=== PATIENT | female | born 1930 | race Caucasian/White ===

== ENCOUNTER 2016-08-05 09:47 | Outpatient (CLI) | payer MEDICARE | END 2016-08-05 09:48 | disposition home or self-care (01) | LOC: NAVSJIPCSP 09:47 | PROVIDERS: ATTEND Internal Medicine | DX: E78.5 Hyperlipidemia, unspecified (principal); Z79.899 Other long term (current) drug therapy | CPT/HCPCS: 36415; 80061 ==

== ENCOUNTER 2016-11-12 10:10 | Outpatient (CLI) | payer MEDICARE | END 2016-11-12 10:11 | disposition home or self-care (01) | LOC: NAVSJIPCSP 10:10 | PROVIDERS: ATTEND Internal Medicine | DX: E78.5 Hyperlipidemia, unspecified (principal); Z79.899 Other long term (current) drug therapy | CPT/HCPCS: 36415; 80061 ==

== ENCOUNTER 2017-02-09 08:26 | Outpatient (CLI) | payer MEDICARE ==
[2017-02-09 12:31] LABS: #Basophils 0.1 thou/uL (0.0-0.2); #Eosinphils 0.2 thou/uL (0.0-0.7); #Lymphocytes 2.6 thou/uL (1.20-3.40); #Monocytes 0.4 thou/uL (0.11-0.59); #Neutrophils 3.3 thou/uL (1.40-6.50); %Basophils 1.5 % (0.0-1.0); %Eosinophils 3.3 % (0.0-10.0); %Lymphocytes 38.9 % (21.0-51.0); %Monocytes 5.8 % (0.0-10.0); %Neutrophils 50.5 % (42.0-75.0); Hemoglobin 12.7 g/dL (12.0-16.0); Mean Corpuscular HGB CONC 33.3 g/dL (32.0-36.0); Mean Corpuscular Hemoglobin 30.8 pg (27.0-31.0); Mean Corpuscular Volume 92.6 fl (81.0-99.0); Platelet Count 222 thou/uL (130-400); RBC Distribution Width 11.8 % (11.5-14.5); Red Blood Cell (RBC) Count 4.12 mill/uL (4.20-5.40); White Blood Cell (WBC) Count 6.6 thou/uL (4.8-10.8)
[2017-02-09 12:51] LABS: ALT (SGPT) 18 U/L (8-55); AST (SGOT) 17 U/L (5-34); Albumin 4.4 g/dL (3.4-4.8); Alkaline Phosphatase 85 U/L (40-150); Anion Gap 18 mmol/L (10-20); BUN (Urea Nitrogen) 15 mg/dL (9.8-20.1); Bilirubin, Total 0.6 mg/dL (0.2-1.2); Calc. Creatinine Clearance 0 mL/min (70-130); Calcium 9.7 mg/dL (7.8-10.44); Carbon Dioxide 20 mmol/L (23-31); Cardiac Risk 2.9 (Less than 4.5); Chloride 105 mmol/L (98-107); Cholesterol 177 mg/dl (< 200 Desired); Estimated GFR-MDRD 63; Globulin 1.7 g/dL (2.4-3.5); Glucose 97 mg/dL (83-110); HDL Cholesterol 61 mg/dL (>60 Neg Risk); LDL Cholesterol, Calculated 95 mg/dL; Potassium 4.9 mmol/L (3.5-5.1); Protein, Total 6.1 g/dL (6.0-8.3); Sodium 138 mmol/L (136-145); Triglycerides 105 mg/dL (Less than 150)
[2017-02-10 13:41] LABS: Bilirubin Negative (Negative); Blood, Urine Moderate (Negative); Clarity Cloudy (Clear); Glucose, Urine (Dipstick) Negative (Negative); Leukocyte Large (Negative); Nitrite Negative (Negative); Protein, Urine (Dipstick) 30 mg/dL (Neg-Trace); Specific Gravity, Urine 1.025 (1.005-1.030); Urobilinogen 0.2 mg/dL (0.2-1.0)
[2017-02-10 13:58] LABS: Squamous Epithelial 0-3 HPF (0-3); WBC/HPF 21-50 HPF (0-3)
[2017-02-10 13:59] LABS: Bacteria/HPF 2+ HPF (None Seen); Other Microscopic Description NO
== END 2017-02-09 08:27 | disposition home or self-care (01) ==
LOC: NAVSJIPCSP 08:26
PROVIDERS: ATTEND Internal Medicine
DX: I11.9 Hypertensive heart disease without heart failure (principal); E78.5 Hyperlipidemia, unspecified
CPT/HCPCS: 36415; 80053; 80061; 81003; 81015; 85025

== ENCOUNTER 2017-10-13 11:13 | Emergency (ER) | payer MEDICARE ==
[2017-10-13] MEDS ORDERED: Triple Antibiotic Oint 1 GM Packet ONE (11:21)
[2017-10-13 12:43] LABS: Bilirubin Small (Negative); Blood, Urine Large (Negative); Clarity Cloudy (Clear); Glucose, Urine (Dipstick) Negative (Negative); Leukocyte Small (Negative); Nitrite Positive (Negative); Protein, Urine (Dipstick) > or equal to 300 mg/dL (Neg-Trace); Specific Gravity, Urine 1.025 (1.005-1.030); pH, Urine 5.5 (5.0-9.0)
[2017-10-13 12:49] LABS: Bacteria/HPF 3+ HPF (None Seen); RBC/HPF GREATER THAN 50-TNTC HPF (0-3); Squamous Epithelial 0-3 HPF (0-3)
--- NOTE | 2017-10-13 13:14 | CT ---
CT LUMBAR SPINE NONCONTRAST: INDICATIONS: Low back pain related to recent fall, injury. FINDINGS: There is osseous demineralization. No compression fracture or significant subluxation. Prominent de xtroscoliosis of the lumbar spine is present, centered at the L2-L3 level. There is multilevel degen erative facet hypertrophy. Incidental note of atherosclerotic vascular disease. IMPRESSION: No acute osseous abnormality of the lumbar spine. POS: [facility]
--- NOTE | 2017-10-13 13:35 | RAD ---
PA CHEST AND LEFT RIB SERIES: HISTORY: Injury. Left-sided chest pain. FINDINGS: The heart size is normal. The aorta is tortuous. The lungs are well expanded without focal areas of consolidation, pneumothorax, or pleural effusions. There are fractures involving the left 8th and 9th ribs. POS: [facility]
[2017-10-13 13:36] LABS: #Lymphocytes 1.3 thou/uL (1.20-3.40); #Monocytes 0.5 thou/uL (0.11-0.59); #Neutrophils 4.3 thou/uL (1.40-6.50); %Basophils 0.7 % (0.0-1.0); %Eosinophils 0.3 % (0.0-10.0); %Lymphocytes 20.9 % (21.0-51.0); %Monocytes 8.2 % (0.0-10.0); %Neutrophils 69.8 % (42.0-75.0); Hemoglobin 10.3 g/dL (12.0-16.0); Mean Corpuscular HGB CONC 31.7 g/dL (32.0-36.0); Mean Corpuscular Hemoglobin 31.2 pg (27.0-31.0); Mean Corpuscular Volume 98.4 fl (81.0-99.0); Mean Platelet Volume 6.8 fL (7.4-10.4); Platelet Count 169 thou/uL (130-400); RBC Distribution Width 13.1 % (11.5-14.5); Red Blood Cell (RBC) Count 3.31 mill/uL (4.20-5.40); White Blood Cell (WBC) Count 6.2 thou/uL (4.8-10.8)
[2017-10-13 13:43] LABS: Anion Gap 19 mmol/L (10-20); BUN (Urea Nitrogen) 95 mg/dL (9.8-20.1); Calc. Creatinine Clearance 0 mL/min (70-130); Calcium 9.2 mg/dL (7.8-10.44); Carbon Dioxide 12 mmol/L (23-31); Chloride 107 mmol/L (98-107); Estimated GFR-MDRD 9; Glucose 91 mg/dL (83-110); Potassium 5.5 mmol/L (3.5-5.1); Sodium 132 mmol/L (136-145)
[2017-10-13] MEDS ORDERED: Sulfameth/Trimethoprim DS 800-160mg TAB ONE (14:38)
[2017-10-13] MEDS ORDERED: Sodium Chloride 0.9% 1,000 ML ONE (17:39)
== END 2017-10-13 15:14 | disposition short-term general hospital (02) ==
LOC: NAV ERS 11:13
DX: S22.42XA Multiple fractures of ribs, left side, initial encounter for closed fracture (principal); S41.111A Laceration without foreign body of right upper arm, initial encounter; N39.0 Urinary tract infection, site not specified; N19 Unspecified kidney failure; S70.02XD Contusion of left hip, subsequent encounter; M19.90 Unspecified osteoarthritis, unspecified site; G47.00 Insomnia, unspecified; I10 Essential (primary) hypertension; F32.9 Major depressive disorder, single episode, unspecified; Z79.899 Other long term (current) drug therapy; W01.190A Fall on same level from slipping, tripping and stumbling with subsequent striking against furniture, initial encounter
CPT/HCPCS: 36415; 72131; 80048; 81003; 81015; 85025; 87077; 87086; 87186; 96360; J7050

== ENCOUNTER 2017-10-28 13:54 | Inpatient (IN) | payer MEDICARE ==
[2017-10-28 14:05] VITALS: BMI 23.4
[2017-10-28] MEDS ORDERED: Sodium Bicarbonate Tab 325 MG TAB PO SCH (15:00)
[2017-10-28] MEDS ORDERED: Acetaminophen 500 MG TAB PO PRN (16:09)
[2017-10-28] MEDS ORDERED: Zinc Oxide 16% Ointment 60 gm Tube TOP PRN ×2 (16:09→16:56)
[2017-10-28] MEDS ORDERED: Ferrous Sulfate 325 MG TAB PO SCH (17:00)
[2017-10-28] MEDS ORDERED: Polyethylene Glycol OPTH DROP 15 ML BOT EA EYE SCH (17:00)
[2017-10-28] MEDS: Ferrous Sulfate 325 MG TAB PO SCH (18:25)
[2017-10-28] MEDS: Polyethylene Glycol OPTH DROP 15 ML BOT EA EYE SCH ×2 (18:25→20:54)
[2017-10-28] MEDS ORDERED: Cipro 250 MG TAB PO SCH (20:00)
[2017-10-28] MEDS: Cipro 250 MG TAB PO SCH (20:53)
[2017-10-28] MEDS: Artificial Tear Sol 15 ML BOT R EYE SCH (20:53)
[2017-10-28] MEDS: Rosuvastatin 10 MG TAB PO SCH (20:54)
[2017-10-28] MEDS: FRESHKOTE EYE R EYE SCH (20:54)
[2017-10-28] MEDS: Sodium Bicarbonate Tab 325 MG TAB PO SCH (20:55)
[2017-10-28] MEDS ORDERED: Rosuvastatin 10 MG TAB PO SCH (21:00)
[2017-10-29 05:32] LABS: #Basophils 0.1 thou/uL (0.0-0.2); #Eosinphils 0.1 thou/uL (0.0-0.7); #Lymphocytes 1.4 thou/uL (1.20-3.40); #Monocytes 0.3 thou/uL (0.11-0.59); #Neutrophils 2.8 thou/uL (1.40-6.50); %Eosinophils 1.7 % (0.0-10.0); %Lymphocytes 29.6 % (21.0-51.0); %Monocytes 7.2 % (0.0-10.0); %Neutrophils 59.6 % (42.0-75.0); Hemoglobin 6.7 g/dL (12.0-16.0); Mean Corpuscular HGB CONC 32.6 g/dL (32.0-36.0); Mean Corpuscular Hemoglobin 30.2 pg (27.0-31.0); Mean Corpuscular Volume 92.5 fl (81.0-99.0); Mean Platelet Volume 6.1 fL (7.4-10.4); Platelet Count 220 thou/uL (130-400); RBC Distribution Width 15.8 % (11.5-14.5); Red Blood Cell (RBC) Count 2.22 mill/uL (4.20-5.40); White Blood Cell (WBC) Count 4.7 thou/uL (4.8-10.8)
[2017-10-29 05:42] LABS: Anion Gap 12 mmol/L (10-20); BUN (Urea Nitrogen) 32 mg/dL (9.8-20.1); Calc. Creatinine Clearance 21 mL/min (70-130); Calcium 7.8 mg/dL (7.8-10.44); Carbon Dioxide 19 mmol/L (23-31); Chloride 112 mmol/L (98-107); Estimated GFR-MDRD 23; Glucose 97 mg/dL (83-110); Potassium 3.8 mmol/L (3.5-5.1); Sodium 139 mmol/L (136-145)
[2017-10-29] MEDS ORDERED: Sodium Chloride 0.9% 10 ML ONE (06:23)
[2017-10-29] MEDS: Cipro 250 MG TAB PO SCH ×2 (06:28→20:20)
[2017-10-29] MEDS ORDERED: Sodium Chloride 0.9% 20 ML ONE (06:37)
[2017-10-29] MEDS: Ferrous Sulfate 325 MG TAB PO SCH ×2 (08:17→17:23)
[2017-10-29] MEDS: Artificial Tear Sol 15 ML BOT R EYE SCH ×3 (08:17→20:21)
[2017-10-29] MEDS: Amlodipine 5 MG TAB PO SCH (08:17)
[2017-10-29] MEDS: Sodium Bicarbonate Tab 325 MG TAB PO SCH ×3 (08:18→20:20)
[2017-10-29] MEDS: Famotidine 20 MG TAB PO SCH (08:18)
[2017-10-29] MEDS: FRESHKOTE EYE R EYE SCH ×2 (08:18→15:23)
[2017-10-29] MEDS: Polyethylene Glycol OPTH DROP 15 ML BOT EA EYE SCH ×4 (08:18→20:21)
[2017-10-29] MEDS: Saccharomyces boulardii 250 MG CAP PO SCH (08:18)
[2017-10-29] MEDS ORDERED: Saccharomyces boulardii 250 MG CAP PO SCH (09:00)
--- NOTE | 2017-10-29 13:50 | HP ---
CHIEF COMPLAINT: 1. Resolving hemorrhagic cystitis. 2. Resolving acute on chronic kidney disease. 3. Left 8th and 9th rib fracture, healing. 4. Significant deconditioning. 5. Urinary retention requiring periodic self-catheterization. BRIEF HISTORY: This is a very pleasant 87-year-old female who is a patient of mine, who wa s recently admitted to [facility] with weakness, fatigue, and altered mental status. She was diagnosed with acute renal failure, hemorrhagic cystitis left 8th and 9th rib fractures. She und erwent cystoscopy and biopsy which was negative for any malignancy. She was treated with IV antibiot ics, IV fluids, and then was switched over to p.o. ciprofloxacin. Urology recommended in and out cat heterization due to urinary retention. Apparently, her daughter was having significant issues and petty duggan also took Ambien for sleep and she got more lethargic and confused at home, so she was brought back to the hospital. She was admitted overnight for observation and then transferred here mainly fo r therapy. The patient denies any concerns or questions. She is able to recognize me. She is back to her baseline. Her daughter is in the room and she denies any questions or concerns. She understa nds that she needs therapy. She was noted to have a hemoglobin of 6.7 this morning and she is gettin g her 1 unit of packed cells and she is tolerating it well. Discussed with nursing and she apparentl y had a saturated brief and when nursing did in and out catheterization, they were able to get only 1 50 mL. Unfortunately, the bladder scan is under repair and we are trying to get a loaner, so we can monitor it and avoid in and out catheterization unless it is absolutely necessary. Patient denies an y fever, chills, chest pain or shortness of breath. PAST MEDICAL HISTORY: 1. Hypertension. 2. Dyslipidemia. 3. Insomnia. 4. Anemia of chronic disease. 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 6. Resolving hemorrhagic cystitis. PAST SURGICAL HISTORY: 1. Left eye retinal surgery. 2. Recent cystoscopy and ureteroscopy. CURRENT MEDICATIONS: 1. Norvasc 10 mg p.o. daily. 2. Ciprofloxacin 250 mg p.o. b.i.d. for 5 more days. 3. Pepcid 20 mg daily. 4. Iron sulfate 325 mg p.o. b.i.d. 5. Crestor 20 mg p.o. daily. 6. Florastor 250 mg daily. 7. Sodium bicarbonate 650 mg p.o. t.i.d. for metabolic acidosis. ALLERGIES: BACITRACIN, NEOMYCIN and PENICILLIN. FAMILY HISTORY: Mother at age 86 from complications from pneumonia. PSYCHOSOCIAL HISTORY: The patient lives here in [place]. Lives with her daughter. Very active and independent. No documented tobacco, alcohol or IV drug abuse. REVIEW OF SYSTEMS: CARDIOVASCULAR SYSTEM: The patient denies any chest pain, shortness of breath, p alpitations, paroxysmal nocturnal dyspnea, orthopnea, pedal edema. RESPIRATORY SYSTEM: Denies any c hronic cough, expectoration or pleuritic type chest pain. GASTROINTESTINAL SYSTEM: Denies any nause a, vomiting, diarrhea, constipation, hematemesis, melena, hematochezia. GENITOURINARY SYSTEM: See h istory of presenting illness. She is still having episodes of hematuria and some urinary retention. CENTRAL NERVOUS SYSTEM: Generalized weakness. MUSCULOSKELETAL SYSTEM: She does have arthritis. S KIN: She denies any rash. HEENT: Denies any recent changes with vision, speech, hearing or swallow ing. PHYSICAL EXAMINATION: GENERAL: Very pleasant 87-year-old female in no apparent distress. She responds appropria tely to questions. She is alert, awake, and oriented x3. VITAL SIGNS: She is afebrile, heart rate is 82, respirations are 18, blood pressure is 155/67, oxyge n saturation is 95% on room air. HEENT: Normocephalic, atraumatic. Pupils are equal and reactive to light and accommodation. NECK: No JVD, thyromegaly, cervical adenopathy, or throat exudates. No carotid bruits. CARDIOVASCUL AR SYSTEM: S1, S2 plus. Rate and rhythm regular. RESPIRATORY SYSTEM: Normal vesicular breath sounds heard in all lung fowler. ABDOMEN: Soft, nontender, bowel sounds heard in all quadrants. EXTREMITIES: Without cyanosis or clubbing. Peripheral pulses are palpable. CENTRAL NERVOUS SYSTEM: Generalized weakness. LABORATORY DATA: Laboratory values done this morning shows white count of 4.7, hemoglobin and hemato crit is 6.7 and 20.5, it was 7.5 and 21.1 yesterday. Chemistry shows sodium 139, potassium 3.8, BUN and creatinine is 32 and 2.07, it was 34 and 1.99 yesterday. IMPRESSION: 1. Worsening anemia, possibly due to blood loss from her hematuria and her hemorrhagic cystitis. 2. Chronic kidney disease stage 4. 3. Hypertension, reasonable control. 4. Dyslipidemia. 5. Degenerative joint disease. 6. Insomnia. 7. Healing left 8th and 9th rib fractures. 8. Metabolic acidosis, on sodium bicarbonate tablets. PLAN: 1. Continue ciprofloxacin for 5 more days. 2. Type and cross and transfuse 1 unit which is already being done. 3. Continue current medications. 4. Stress ulcer prophylaxis. 5. PlexiPulses for DVT prophylaxis. 6. Physical therapy and occupational therapy evaluation and treat. 7. Monitor laboratory values closely. 8. Nutritional support. 9. Try to get a loaner bladder scan and monitor her urine output. 10. Discussed with patient and daughter in detail. All questions answered. 11. Estimated length of stay 7 days.
[2017-10-29] MEDS: Rosuvastatin 10 MG TAB PO SCH (20:20)
[2017-10-30] MEDS: Cipro 250 MG TAB PO SCH ×2 (06:29→20:31)
[2017-10-30] MEDS: Amlodipine 5 MG TAB PO SCH (08:37)
[2017-10-30] MEDS: Saccharomyces boulardii 250 MG CAP PO SCH (08:37)
[2017-10-30] MEDS: Sodium Bicarbonate Tab 325 MG TAB PO SCH ×3 (08:37→20:32)
[2017-10-30] MEDS: Famotidine 20 MG TAB PO SCH (08:38)
[2017-10-30] MEDS: Artificial Tear Sol 15 ML BOT R EYE SCH ×3 (08:38→20:31)
[2017-10-30] MEDS: Ferrous Sulfate 325 MG TAB PO SCH ×2 (08:38→17:40)
[2017-10-30] MEDS: Polyethylene Glycol OPTH DROP 15 ML BOT EA EYE SCH ×4 (08:39→20:31)
--- NOTE | 2017-10-30 09:11 | PRG ---
DATE OF SERVICE: 10/30/2017 SUBJECTIVE: Ms. Raymond is doing well. Denies any complaints, resting comfortably, alert and oriente d. Her daughter is in the room. She is having urinary incontinence, but she is not having any reten tion. Bladder scans have been consistently below 250 mL and been done every 6 hours. Her hematuria seems to have resolved. She did receive 1 unit of blood transfusion without any problems yesterday. No concerns or questions. OBJECTIVE: VITAL SIGNS: She is afebrile, heart rate 79, respirations 18, oxygen saturation 94% on room air, blo od pressure 161/72. CARDIOVASCULAR: S1, S2 plus. RESPIRATORY: Normal vesicular breath sounds. ABDOMEN: Soft, nontender, bowel sounds heard in all quadrants. EXTREMITIES: Without cyanosis, clubbing. Degenerative joint disease. CENTRAL NERVOUS SYSTEM: Grossly nonfocal except for generalized weakness. IMPRESSION: 1. Anemia requiring blood transfusion. Repeat laboratory values are pending. 2. Hemorrhagic cystitis, resolving. 3. Hypertension, fluctuating control. 4. Dyslipidemia. 5. Degenerative joint disease. 6. Insomnia. 7. Acute renal failure. Her last renal function in February was completely within normal limits. We will continue to monitor. PLAN: 1. Continue current medications. 2. Monitor blood pressure and adjust medications. 3. Heart healthy diet. 4. Continue to do bladder scan and in and out catheterization if residual is more than 300 mL. 5. DVT prophylaxis with PlexiPulses. 6. Decubitus precautions. 7. Continue PT and OT. 8. Routine laboratory values. 9. Discussed with patient and daughter in detail and all questions answered.
[2017-10-30] MEDS: Rosuvastatin 10 MG TAB PO SCH (20:32)
[2017-10-31] MEDS: Cipro 250 MG TAB PO SCH ×2 (05:35→21:00)
[2017-10-31 06:17] LABS: #Basophils 0.1 thou/uL (0.0-0.2); #Eosinphils 0.1 thou/uL (0.0-0.7); #Lymphocytes 1.6 thou/uL (1.20-3.40); #Monocytes 0.4 thou/uL (0.11-0.59); #Neutrophils 2.2 thou/uL (1.40-6.50); %Basophils 2.1 % (0.0-1.0); %Lymphocytes 37.3 % (21.0-51.0); %Monocytes 8.2 % (0.0-10.0); %Neutrophils 50.4 % (42.0-75.0); Hemoglobin 7.8 g/dL (12.0-16.0); Mean Corpuscular Hemoglobin 30.6 pg (27.0-31.0); Mean Corpuscular Volume 92.8 fl (81.0-99.0); Mean Platelet Volume 6.4 fL (7.4-10.4); Platelet Count 211 thou/uL (130-400); RBC Distribution Width 15.1 % (11.5-14.5); Red Blood Cell (RBC) Count 2.54 mill/uL (4.20-5.40); White Blood Cell (WBC) Count 4.3 thou/uL (4.8-10.8)
[2017-10-31 06:27] LABS: Anion Gap 12 mmol/L (10-20); BUN (Urea Nitrogen) 28 mg/dL (9.8-20.1); Calc. Creatinine Clearance 20 mL/min (70-130); Calcium 7.9 mg/dL (7.8-10.44); Carbon Dioxide 20 mmol/L (23-31); Chloride 112 mmol/L (98-107); Estimated GFR-MDRD 21; Glucose 95 mg/dL (83-110); Potassium 3.5 mmol/L (3.5-5.1); Sodium 140 mmol/L (136-145)
[2017-10-31] MEDS: Famotidine 20 MG TAB PO SCH (09:01)
[2017-10-31] MEDS: Sodium Bicarbonate Tab 325 MG TAB PO SCH ×3 (09:01→21:07)
[2017-10-31] MEDS: Saccharomyces boulardii 250 MG CAP PO SCH (09:01)
[2017-10-31] MEDS: Amlodipine 5 MG TAB PO SCH (09:01)
[2017-10-31] MEDS: Polyethylene Glycol OPTH DROP 15 ML BOT EA EYE SCH ×4 (09:01→21:09)
[2017-10-31] MEDS: Ferrous Sulfate 325 MG TAB PO SCH ×2 (09:01→17:00)
[2017-10-31] MEDS: Artificial Tear Sol 15 ML BOT R EYE SCH ×3 (09:02→21:08)
[2017-10-31] MEDS: Rosuvastatin 10 MG TAB PO SCH (21:07)
--- NOTE | 2017-10-31 22:40 | PRG ---
DATE OF SERVICE: 10/31/[address] David Sauceda. SUBJECTIVE: The patient feels well. States she is ready to go home. She has been eating and drinki ng well with no dizziness or lightheadedness, dysuria, or hematuria. She has had a recent admission to the hospital with acute renal failure secondary to hemorrhagic cystitis, but has no further sympto ms. OBJECTIVE: VITAL SIGNS: Her blood pressure still 161/68, temperature is 98.4, pulse 82, respirations 20, O2 sat s 94% on room air. LUNGS: Clear. CARDIAC: Shows regular rhythm. ABDOMEN: Soft and nontender. SKIN AND EXTREMITIES: Showed no edema, clubbing, or cyanosis. IMAGING: Bladder scan; however, continued to show greater than 400 mL of urine retention. LABORATORY DATA: Show hemoglobin up to 7.8 after transfusion of 1 unit, hematocrit 23, white count 4 300. Urinalysis showed sodium 140, potassium 3.5, chloride 112, bicarbonate 20, BUN 28, creatinine 2 .17. ASSESSMENT: 1. Stable chronic kidney disease, stage 4, status post acute kidney injury from hemorrhagic cystitis . 2. Resolving hemorrhagic cystitis. 3. Persistent urinary retention, requiring intermittent catheterization. 4. Hypertension, controlled to goal. PLAN: Continue to monitor for urinary retention. Discuss discharge planning with daughter as ga sharpe is adamant, she is wishing to go home. Daughter needs to be able to do in and out catheterization if possible. Continue Cipro 250 twice daily until tomorrow.
[2017-11-01 05:36] LABS: Anion Gap 12 mmol/L (10-20); BUN (Urea Nitrogen) 28 mg/dL (9.8-20.1); Calc. Creatinine Clearance 18 mL/min (70-130); Calcium 8.1 mg/dL (7.8-10.44); Carbon Dioxide 20 mmol/L (23-31); Chloride 113 mmol/L (98-107); Estimated GFR-MDRD 19; Glucose 99 mg/dL (83-110); Potassium 3.6 mmol/L (3.5-5.1); Sodium 141 mmol/L (136-145)
[2017-11-01 05:40] LABS: #Basophils 0.1 thou/uL (0.0-0.2); #Eosinphils 0.1 thou/uL (0.0-0.7); #Lymphocytes 1.7 thou/uL (1.20-3.40); #Monocytes 0.5 thou/uL (0.11-0.59); %Basophils 1.9 % (0.0-1.0); %Lymphocytes 38.4 % (21.0-51.0); %Monocytes 10.6 % (0.0-10.0); %Neutrophils 47.1 % (42.0-75.0); Hemoglobin 8.3 g/dL (12.0-16.0); Mean Corpuscular HGB CONC 32.4 g/dL (32.0-36.0); Mean Corpuscular Hemoglobin 30.1 pg (27.0-31.0); Mean Platelet Volume 6.2 fL (7.4-10.4); Platelet Count 205 thou/uL (130-400); RBC Distribution Width 14.8 % (11.5-14.5); Red Blood Cell (RBC) Count 2.77 mill/uL (4.20-5.40); White Blood Cell (WBC) Count 4.3 thou/uL (4.8-10.8)
[2017-11-01] MEDS: Cipro 250 MG TAB PO SCH ×2 (05:58→20:07)
[2017-11-01] MEDS: Saccharomyces boulardii 250 MG CAP PO SCH (08:34)
[2017-11-01] MEDS: Sodium Bicarbonate Tab 325 MG TAB PO SCH ×3 (08:34→20:08)
[2017-11-01] MEDS: Amlodipine 5 MG TAB PO SCH (08:37)
[2017-11-01] MEDS: Famotidine 20 MG TAB PO SCH (08:38)
[2017-11-01] MEDS: Ferrous Sulfate 325 MG TAB PO SCH ×2 (08:38→17:38)
[2017-11-01] MEDS: Artificial Tear Sol 15 ML BOT R EYE SCH ×3 (08:39→20:07)
[2017-11-01] MEDS: Polyethylene Glycol OPTH DROP 15 ML BOT EA EYE SCH ×4 (08:40→20:07)
[2017-11-01] MEDS: Rosuvastatin 10 MG TAB PO SCH (20:07)
[2017-11-02 05:45] LABS: Anion Gap 13 mmol/L (10-20); BUN (Urea Nitrogen) 27 mg/dL (9.8-20.1); Calc. Creatinine Clearance 17 mL/min (70-130); Calcium 8.3 mg/dL (7.8-10.44); Carbon Dioxide 21 mmol/L (23-31); Chloride 113 mmol/L (98-107); Estimated GFR-MDRD 18; Glucose 103 mg/dL (83-110); Potassium 3.6 mmol/L (3.5-5.1); Sodium 143 mmol/L (136-145)
--- NOTE | 2017-11-02 08:17 | PRG ---
DATE OF SERVICE: 11/01/[address] David Sauceda. SUBJECTIVE: The patient feels much better with increasing strength, still not eating and drinking mu ch, but is going to the bathroom. He is having decreasing residuals. OBJECTIVE: VITAL SIGNS: Temperature is 98, pulse 82, respirations 18, O2 sats 95% on room air, blood pressure 1 61/69. Residuals now less than 150-200. LUNGS: Clear. CARDIAC: Shows regular rhythm. ABDOMEN: Soft and nontender. Intake and output not completely measured as the patient is still lewis g in a diaper some. LABORATORY DATA: Show white count of 4300, hematocrit 25, hemoglobin 8.3, gradually improving. Sodi um 141, potassium 3.6, chloride 113, bicarbonate 20, BUN 28, creatinine 2.4 up from 2.07 with a GFR d own to 19. ASSESSMENT: 1. Resolving hemorrhagic cystitis 2. Stable anemia secondary to hemorrhagic cystitis. 3. Persistent urinary retention, improving, ambulation with decreasing residuals. 4. Hypertension, controlled to goal. 5. Chronic kidney disease stage 4, slightly worsening with a creatinine of 2.4 from 2.17 and we will repeat in the a.m. We will stress oral intake.
[2017-11-02] MEDS: Ferrous Sulfate 325 MG TAB PO SCH ×2 (08:55→17:40)
[2017-11-02] MEDS: Amlodipine 5 MG TAB PO SCH (08:55)
[2017-11-02] MEDS: Famotidine 20 MG TAB PO SCH (08:56)
[2017-11-02] MEDS: Artificial Tear Sol 15 ML BOT R EYE SCH ×3 (08:56→21:00)
[2017-11-02] MEDS: Polyethylene Glycol OPTH DROP 15 ML BOT EA EYE SCH ×4 (08:57→21:00)
[2017-11-02] MEDS: Sodium Bicarbonate Tab 325 MG TAB PO SCH ×3 (08:57→21:00)
[2017-11-02] MEDS: Saccharomyces boulardii 250 MG CAP PO SCH (08:57)
--- NOTE | 2017-11-02 13:24 | PRG ---
DATE OF SERVICE: 11/02/2017 Ms. Raymond apparently is not eating or drinking well. She has a flat affect. She says she wants to go home, but when I explained to her that she really needs to eat well and do more with therapy and w e need to sort out her urinary retention, she got upset and stated that she is going to spend the res t of her life here. Her daughter and other family members are in the room. I explained to her that I understand her frustration, but really need to get her better. She is going to get a renal ultraso und and then I have asked them to place an indwelling Kenny catheter. Family states that they really cannot do in and out catheterization at home. OBJECTIVE: VITAL SIGNS: She is afebrile, heart rate is 85, respirations 20, oxygen saturation 96% on room air, blood pressure 166/70. CARDIOVASCULAR: S1, S2 plus. RESPIRATORY SYSTEM: Normal vesicular breath sounds. ABDOMEN: Soft, nontender, bowel sounds heard in all quadrants. EXTREMITIES: Without cyanosis or clubbing. CENTRAL NERVOUS SYSTEM: Generalized weakness. LABORATORY VALUES: Sodium 143, potassium 3.6, BUN and creatinine 27 and 2.56. It was 28 and 2.4 yes terday. White count 4.3, H&H 8.3 and 25.7. IMPRESSION: 1. Worsening renal insufficiency. 2. Persistent urinary retention. 3. Hypertension. 4. Dyslipidemia. 5. Degenerative joint disease. 6. Insomnia. 7. Resolving hemorrhagic cystitis. PLAN: 1. Check renal and bladder ultrasound to make sure there is no hydronephrosis. 2. Place indwelling Kenny catheter. 3. Trial of Celexa. 4. Encourage p.o. intake. 5. Physical therapy. 6. Routine laboratory values. 7. Discussed with patient and family in detail. All questions answered.
--- NOTE | 2017-11-02 14:45 | ULT ---
RENAL SONOGRAM: HISTORY: Renal failure. Retention. FINDINGS: The right kidney is 10.0 cm. The left kidney is 9.6 cm. No solid or cystic masses. No hydronephros is. Urinary bladder is decompressed by a Kenny catheter. IMPRESSION: No evidence of upper urinary tract obstruction. POS: [facility]
[2017-11-02] MEDS: Citalopram 10 MG TAB PO SCH (21:00)
[2017-11-02] MEDS: Rosuvastatin 10 MG TAB PO SCH (21:00)
[2017-11-03 05:41] LABS: Anion Gap 11 mmol/L (10-20); BUN (Urea Nitrogen) 25 mg/dL (9.8-20.1); Calc. Creatinine Clearance 18 mL/min (70-130); Calcium 8.3 mg/dL (7.8-10.44); Carbon Dioxide 22 mmol/L (23-31); Chloride 112 mmol/L (98-107); Estimated GFR-MDRD 20; Glucose 102 mg/dL (83-110); Potassium 3.8 mmol/L (3.5-5.1); Sodium 141 mmol/L (136-145)
[2017-11-03] MEDS: Polyethylene Glycol OPTH DROP 15 ML BOT EA EYE SCH ×4 (08:36→20:31)
[2017-11-03] MEDS: Famotidine 20 MG TAB PO SCH (08:36)
[2017-11-03] MEDS: Ferrous Sulfate 325 MG TAB PO SCH ×2 (08:36→17:31)
[2017-11-03] MEDS: Amlodipine 5 MG TAB PO SCH (08:36)
[2017-11-03] MEDS: Artificial Tear Sol 15 ML BOT R EYE SCH ×3 (08:36→20:31)
[2017-11-03] MEDS: Saccharomyces boulardii 250 MG CAP PO SCH (08:37)
[2017-11-03] MEDS: Sodium Bicarbonate Tab 325 MG TAB PO SCH ×3 (08:37→20:31)
--- NOTE | 2017-11-03 13:34 | PRG ---
DATE OF SERVICE: 11/03/2017 SUBJECTIVE: Ms. Raymond is doing well with therapy. She is eating better, but still not enough. I h ad a long discussion with the patient. She does not have her dentures here, but even at home she lindy arently does not use it. She apparently just eats a soft diet. So, I am going to change her to a me chanically soft diet here and also encouraged her to drink her supplements. Plan is to discharge her home on , as Therapy states that she is pretty much safe to go home after a couple more days of therapy. Discussed with her daughter as well. OBJECTIVE: VITAL SIGNS: She is afebrile, heart rate 84, respirations 18, oxygen saturation 93% on room air, blo od pressure 120/58. CARDIOVASCULAR SYSTEM: S1 and S2 plus. RESPIRATORY SYSTEM: Normal vesicular breath sounds. ABDOMEN: Soft, nontender, bowel sounds heard in all quadrants. EXTREMITIES: Without cyanosis or clubbing. CENTRAL NERVOUS SYSTEM: Improving deconditioning. LABORATORY VALUES: Sodium 141, potassium 3.8, BUN and creatinine are 25 and 2.35, improving. IMPRESSION: 1. Urinary retention, requiring Kenny catheter placement. 2. Improving renal insufficiency. 3. Hypertension, much improved control. 4. Dyslipidemia. 5. Insomnia. 6. Improving deconditioning. 7. Degenerative joint disease. PLAN: 1. Continue current medications. 2. Nutritional support. 3. DVT and stress ulcer prophylaxis. 4. Decubitus precautions. 5. Mechanically soft diet. 6. Recheck BMP in the morning. 7. Continue physical therapy. 8. Patient wants [facility] that will be arranged. 9. Anticipate discharge on .
[2017-11-03] MEDS: Citalopram 10 MG TAB PO SCH (20:31)
[2017-11-03] MEDS: Rosuvastatin 10 MG TAB PO SCH (20:31)
[2017-11-04 05:39] LABS: Anion Gap 11 mmol/L (10-20); BUN (Urea Nitrogen) 26 mg/dL (9.8-20.1); Calc. Creatinine Clearance 20 mL/min (70-130); Calcium 8.1 mg/dL (7.8-10.44); Carbon Dioxide 22 mmol/L (23-31); Chloride 112 mmol/L (98-107); Estimated GFR-MDRD 22; Glucose 98 mg/dL (83-110); Potassium 3.3 mmol/L (3.5-5.1); Sodium 142 mmol/L (136-145)
[2017-11-04] MEDS: Saccharomyces boulardii 250 MG CAP PO SCH (08:00)
[2017-11-04] MEDS: Ferrous Sulfate 325 MG TAB PO SCH ×2 (08:00→17:12)
[2017-11-04] MEDS: Amlodipine 5 MG TAB PO SCH (08:00)
[2017-11-04] MEDS: Sodium Bicarbonate Tab 325 MG TAB PO SCH ×3 (08:00→20:04)
[2017-11-04] MEDS: Famotidine 20 MG TAB PO SCH (08:01)
[2017-11-04] MEDS: Artificial Tear Sol 15 ML BOT R EYE SCH ×3 (08:02→20:04)
[2017-11-04] MEDS: Polyethylene Glycol OPTH DROP 15 ML BOT EA EYE SCH ×4 (08:02→20:04)
--- NOTE | 2017-11-04 13:29 | PRG ---
DATE OF SERVICE: 11/04/2017 SUBJECTIVE: Ms. Raymond is doing well. Denies any complaints. She apparently ate much better today, tolerating her Kenny catheter even though she does not like it, and knows that she needs it. Her re nal functions are continuing to improve, doing well with therapy. Anticipated discharge date is sharee rr. Home health has already been arranged by nursing. OBJECTIVE: VITAL SIGNS: She is afebrile, heart rate 70, respirations 18, oxygen saturation 93% on room air, blo od pressure 150/67. CARDIOVASCULAR: S1, S2 plus. RESPIRATORY: Normal breath sounds. ABDOMEN: Soft, nontender, bowel sounds heard in all quadrants. EXTREMITIES: Without cyanosis or clubbing. CENTRAL NERVOUS SYSTEM: Improving deconditioning. LABORATORY VALUES: Sodium 142, potassium slightly low at 3.3, BUN and creatinine is 26 and 2.16. IMPRESSION: 1. Improving renal insufficiency. 2. Hypokalemia. 3. Hypertension. 4. Dyslipidemia. 5. Urinary retention. PLAN: 1. Replace potassium. 2. Continue current medications. 3. Physical therapy. 4. Kenny catheter care. 5. DVT and stress ulcer prophylaxis. 6. Decubitus precautions. 7. Anticipate discharge to home tomorrow. 8. Outpatient follow with Urology. Daughter is to reschedule appointment.
[2017-11-04] MEDS ORDERED: Potassium Chloride 20 MEQ TAB PO SCH (13:30)
[2017-11-04] MEDS: Citalopram 10 MG TAB PO SCH (20:04)
[2017-11-04] MEDS: Rosuvastatin 10 MG TAB PO SCH (20:04)
[2017-11-05 05:32] LABS: Anion Gap 10 mmol/L (10-20); BUN (Urea Nitrogen) 26 mg/dL (9.8-20.1); Calc. Creatinine Clearance 21 mL/min (70-130); Calcium 8.1 mg/dL (7.8-10.44); Carbon Dioxide 22 mmol/L (23-31); Chloride 111 mmol/L (98-107); Estimated GFR-MDRD 24; Glucose 96 mg/dL (83-110); Potassium 3.4 mmol/L (3.5-5.1); Sodium 140 mmol/L (136-145)
[2017-11-05] MEDS: Amlodipine 5 MG TAB PO SCH (08:11)
[2017-11-05] MEDS: Ferrous Sulfate 325 MG TAB PO SCH ×2 (08:11→17:06)
[2017-11-05] MEDS: Artificial Tear Sol 15 ML BOT R EYE SCH ×2 (08:14→15:44)
[2017-11-05] MEDS: Famotidine 20 MG TAB PO SCH (08:15)
[2017-11-05] MEDS: Polyethylene Glycol OPTH DROP 15 ML BOT EA EYE SCH ×3 (08:15→17:06)
[2017-11-05] MEDS: Sodium Bicarbonate Tab 325 MG TAB PO SCH ×2 (08:16→15:42)
[2017-11-05] MEDS ORDERED: Potassium Chloride 20 MEQ TAB PO SCH (13:00)
--- NOTE | 2017-11-05 13:21 | DIS ---
DATE OF ADMISSION: 10/28/2017 DATE OF DISCHARGE: 11/05/2017 PRINCIPAL DIAGNOSES: 1. Hemorrhagic cystitis, resolved. 2. Resolving acute renal failure. 3. Left 8th and 9th rib fracture healing. 4. Improved deconditioning. 5. Urinary retention, requiring chronic indwelling Kenny. 6. Hypertension. 7. Dyslipidemia. 8. Insomnia. 9. Anemia of chronic disease. COMPLICATIONS: None. ADVERSE REACTIONS: None. PROCEDURES: Renal and bladder ultrasound. CONSULTATIONS: Physical therapy and occupational therapy. HOSPITAL COURSE: The patient was admitted as a transfer from [facility] where she was a dmitted with weakness, fatigue, and altered mental status. She was diagnosed with acute renal failur e, hemorrhagic cystitis, and left 8th and 9th rib fractures. Cystoscopy and biopsy were negative for any malignancy. She was treated with IV antibiotics and then switched to oral ciprofloxacin. She w as seen by Urology and was recommended in and out catheterization. Patient went home, and apparently , the daughter had trouble doing the in and out catheterization and patient took some Ambien and that made her really confused, so she came back to the hospital and was kept under observation. Her albino l functions continued to show creatinine in the mid 2s range. It was felt that she may have chronic kidney disease. I reviewed my old records and her last creatinine, done in February of last year, was normal. When she came here, she had again signs of urinary retention requiring periodic in and out catheterization, and so I did a renal and bladder ultrasound. It did not show any hydronephrosis. D id show some bladder wall thickening and I decided to place an indwelling Kenny catheter, which given her social circumstances would be her best option at present. She does have an outpatient followup appointment with Urology, Dr. Zepeda. Since placing the Kenny catheter, her renal functions are much improved. It was as high as 2.56 and it is down today to 1.99. She has been placed in a leg bag the rapy, has deemed her safe to go home, and they have discharged her from their services. Home health has been arranged. Family chose [facility]. She is being discharged today. She is to f ollow a heart healthy diet. Continue using Kenny catheter with a thigh bag for daytime and just a re gular bag at night. Activity as tolerated. Encouraged p.o. intake. She is to continue on her sodiu m bicarbonate tablets and her citalopram, which are the only two new ones. Her other medications rosie l remain the same, which are Norvasc 10 mg daily, Pepcid 20 mg daily, iron sulfate 325 mg b.i.d., Cre stor 20 mg daily. PHYSICAL EXAMINATION: On the day of discharge, VITAL SIGNS: She is afebrile, heart rate is 80, respirations are 20, oxygen saturation 96% on room a ir, blood pressure this morning was slightly elevated 172/72. I asked them to recheck it again and n ow it is 142/80. CARDIOVASCULAR SYSTEM: S1 and S2 plus. RESPIRATORY SYSTEM: Normal vesicular breath sounds. ABDOMEN: Soft, nontender, bowel sounds heard in all quadrants. EXTREMITIES: Without cyanosis or clubbing. Degenerative joint disease. CENTRAL NERVOUS SYSTEM: Improving deconditioning. As stated, her last CBC was done on 11/01 where the white count was 4.3, H and H was 8.3 and 25.7. B MP done today shows a sodium of 140, potassium slightly low at 3.4, BUN and creatinine is 26 and 1.99 . She will be given another 20 mg of potassium p.o. today. She is to follow up in my office in 2 we eks. We will do a repeat laboratory values. They are to call us with any questions or concerns. Fo r full details, please see chart. [facility] Discussed with the patient and daughter as well as nursing in detail. Total time spent on this discharge 35 minutes.
[2017-11-05 17:01] VITALS: BP 146/67; TEMP 98.9
== END 2017-11-05 18:10 | disposition home health service (06) | DRG 683 ==
LOC: NAV ACUTE 13:54
PROVIDERS: ADMIT Internal Medicine; ATTEND Internal Medicine
PROC: 30233N1 Transfusion of Nonautologous Red Blood Cells into Peripheral Vein, Percutaneous Approach (ICD-10-PCS; principal; 2017-10-29)
DX: N17.9 Acute kidney failure, unspecified (principal); E87.2 Acidosis; N30.91 Cystitis, unspecified with hematuria; S22.42XD Multiple fractures of ribs, left side, subsequent encounter for fracture with routine healing; R33.9 Retention of urine, unspecified; I12.9 Hypertensive chronic kidney disease with stage 1 through stage 4 chronic kidney disease, or unspecified chronic kidney disease; N18.4 Chronic kidney disease, stage 4 (severe); E78.5 Hyperlipidemia, unspecified; G47.00 Insomnia, unspecified; E87.6 Hypokalemia; M19.90 Unspecified osteoarthritis, unspecified site; D63.8 Anemia in other chronic diseases classified elsewhere; Z88.1 Allergy status to other antibiotic agents; Z88.0 Allergy status to penicillin; Z79.899 Other long term (current) drug therapy; X58.XXXD Exposure to other specified factors, subsequent encounter
CPT/HCPCS: 36430; 76770; 80048; 85025; 86850; 86900; 86901; 86922; A4216; G8978-GP-CL; G8979-GP-CI; P9016

== ENCOUNTER 2018-09-20 09:26 | Emergency (ER) | payer MEDICARE ==
--- NOTE | 2018-09-20 09:58 | RAD ---
Portable frontal chest radiograph: 09/20/2018 COMPARISON: None HISTORY: Midsternal chest pain FINDINGS: Heart and mediastinal contours appear within normal limits. There is elevation of the right hemidiaphragm. The patient is mildly rotated to the right. No focal consolidation or alveolar edema. IMPRESSION: No focal consolidation or alveolar edema.
[2018-09-20] MEDS ORDERED: Ketorolac Tromethamine 30 MG/ML VIAL ONE (10:01)
[2018-09-20 10:03] LABS: Red Blood Cell (RBC) Count 3.28 mill/uL (4.20-5.40)
[2018-09-20 10:04] LABS: #Basophils 0.1 thou/uL (0.0-0.2); #Eosinphils 0.1 thou/uL (0.0-0.7); #Monocytes 0.5 thou/uL (0.11-0.59); #Neutrophils 5.3 thou/uL (1.40-6.50); %Basophils 1.1 % (0.0-1.0); %Eosinophils 1.6 % (0.0-10.0); %Lymphocytes 24.5 % (21.0-51.0); %Monocytes 6.2 % (0.0-10.0); %Neutrophils 66.7 % (42.0-75.0); Hemoglobin 10.3 g/dL (12.0-16.0); Mean Corpuscular HGB CONC 33.8 g/dL (32.0-36.0); Mean Corpuscular Hemoglobin 31.3 pg (27.0-31.0); Mean Corpuscular Volume 92.8 fL (78.0-98.0); Mean Platelet Volume 7.9 fL (7.4-10.4); Platelet Count 190 thou/uL (130-400); RBC Distribution Width 11.7 % (11.5-14.5)
[2018-09-20 10:20] LABS: Albumin 4.4 g/dL (3.4-4.8); Calcium 9.9 mg/dL (7.8-10.44); Chloride 111 mmol/L (98-107); Glucose 119 mg/dL (83-110); Potassium 4.7 mmol/L (3.5-5.1); Sodium 137 mmol/L (136-145)
[2018-09-20 10:21] LABS: Alkaline Phosphatase 92 U/L (40-150); Anion Gap 17 mmol/L (10-20); Bilirubin, Total 0.3 mg/dL (0.2-1.2); Carbon Dioxide 14 mmol/L (23-31); Globulin 1.9 g/dL (2.4-3.5); Protein, Total 6.3 g/dL (5.8-8.1)
[2018-09-20 10:22] LABS: ALT (SGPT) 17 U/L (8-55); AST (SGOT) 24 U/L (5-34); BUN (Urea Nitrogen) 36 mg/dL (9.8-20.1); Calc. Creatinine Clearance 0 mL/min (70-130); Estimated GFR-MDRD 28
== END 2018-09-20 10:52 | disposition home or self-care (01) ==
LOC: NAV ERS 09:26
DX: R07.2 Precordial pain (principal); E87.2 Acidosis; G47.00 Insomnia, unspecified; I10 Essential (primary) hypertension; F32.9 Major depressive disorder, single episode, unspecified
CPT/HCPCS: 36415; 71045; 80053; 84484; 85025; 93005; 94760; 96374; J1885

== ENCOUNTER 2018-10-04 09:39 | Emergency (ER) | payer MEDICARE ==
[2018-10-04 10:33] LABS: #Basophils 0.1 thou/uL (0.0-0.2); #Eosinphils 0.2 thou/uL (0.0-0.7); #Monocytes 0.6 thou/uL (0.11-0.59); #Neutrophils 3.7 thou/uL (1.40-6.50); %Basophils 1.5 % (0.0-1.0); %Lymphocytes 30.2 % (21.0-51.0); %Monocytes 8.4 % (0.0-10.0); Hemoglobin 9.3 g/dL (12.0-16.0); Mean Corpuscular HGB CONC 33.3 g/dL (32.0-36.0); Mean Corpuscular Hemoglobin 31.4 pg (27.0-31.0); Mean Corpuscular Volume 94.3 fL (78.0-98.0); Mean Platelet Volume 8.9 fL (7.4-10.4); Platelet Count 170 thou/uL (130-400); Red Blood Cell (RBC) Count 2.98 mill/uL (4.20-5.40); White Blood Cell (WBC) Count 6.6 thou/uL (4.8-10.8)
--- NOTE | 2018-10-04 10:45 | RAD ---
EXAM: CHEST ONE VIEW HISTORY: Altered mental status COMPARISON: 11/04/2018 FINDINGS: There is persistent mild elevation of the right hemidiaphragm. Cardiac silhouette is within normal li mits for portable technique. Pulmonary vasculature is within normal limits. The lungs are clear. Degenerative changes are seen in the spine, and there is evidence of osteopenia. Dense vascular calci fications are seen in the thoracic aorta. IMPRESSION: Stable chest without evidence of an acute cardiopulmonary process.
[2018-10-04 10:52] LABS: ALT (SGPT) 17 U/L (8-55); AST (SGOT) 21 U/L (5-34); Albumin 3.9 g/dL (3.4-4.8); Alkaline Phosphatase 84 U/L (40-150); Anion Gap 14 mmol/L (10-20); BUN (Urea Nitrogen) 35 mg/dL (9.8-20.1); Bilirubin, Total 0.3 mg/dL (0.2-1.2); CK (CPK) 45 U/L (29-168); Calc. Creatinine Clearance 0 mL/min (70-130); Calcium 9.1 mg/dL (7.8-10.44); Carbon Dioxide 24 mmol/L (23-31); Chloride 106 mmol/L (98-107); Estimated GFR-MDRD 33; Globulin 1.6 g/dL (2.4-3.5); Glucose 101 mg/dL (83-110); Potassium 4.6 mmol/L (3.5-5.1); Protein, Total 5.5 g/dL (6.0-8.3); Sodium 139 mmol/L (136-145)
--- NOTE | 2018-10-04 10:59 | CT ---
CT BRAIN WITHOUT CONTRAST: Date: 10/04/18 HISTORY: Altered mental status. FINDINGS: Comparison made with exam of 10/13/17. Changes of cortical atrophy and chronic small vessel ischemic disease are stable. The ventricular siz e is unchanged and the basilar cisterns are patent. No evidence of acute infarct, hemorrhage, midline shift, or abnormal extra-axial fluid collections are seen. The bony calvarium is intact. The visuali zed paranasal sinuses and mastoid air cells are well aerated. IMPRESSION: No CT evidence of acute intracranial process. POS: [facility]
[2018-10-04 12:22] LABS: Bilirubin Negative (Negative); Blood, Urine Moderate (Negative); Clarity Cloudy (Clear); Glucose, Urine (Dipstick) Negative (Negative); Leukocyte Large (Negative); Nitrite Negative (Negative); Protein, Urine (Dipstick) 100 mg/dL (Neg-Trace); Urobilinogen 0.2 mg/dL (0.2-1.0)
[2018-10-04 12:32] LABS: Bacteria/HPF 2+ HPF (None Seen); Squamous Epithelial 0-3 HPF (0-3)
[2018-10-04] MEDS ORDERED: cefTRIAXone\\ROCEPHIN 1 GM VIAL ONE (12:52)
[2018-10-04] MEDS ORDERED: Sodium Chloride 0.9% 100 ML ONE (12:52)
== END 2018-10-04 13:45 | disposition home or self-care (01) ==
LOC: NAV ERS 09:39
DX: M19.90 Unspecified osteoarthritis, unspecified site (principal); N39.0 Urinary tract infection, site not specified; G47.00 Insomnia, unspecified; I10 Essential (primary) hypertension; Z79.891 Long term (current) use of opiate analgesic; Z79.899 Other long term (current) drug therapy
CPT/HCPCS: 70450; 71045; 80053; 81003; 81015; 82550; 84443; 84484; 85025; 87077; 87086; 93005; 96365; J0696; J3490